=== PATIENT | female | born 1970 | race Caucasian/White ===

== ENCOUNTER 2017-11-16 00:46 | Emergency (ER) | payer OTHER ==
[~2017-11-16] VITALS: Ht 157.5 cm; Wt 77.1 kg
[2017-11-16 01:01] VITALS: BP 126/82
--- NOTE | 2017-11-16 02:53 | ED GI/GU/ABDOMINAL COMPLAINT ---
History of Present Illness General Chief Complaint: Low Back Pain/Injury Stated Complaint: "PHILLIP BEEN HAVING PAIN IN MY BACK" Source: patient Exam Limitations: no limitations Vital Signs & Intake/Output Vital Signs & Intake/Output Vital Signs Date Time Temp Pulse Resp B/P B/P Pulse O2 O2 Flow FiO2 Mean Ox Delivery Rate 11/16 0451 100 Room Air 11/16 0101 99.1 84 18 126/82 97 Room Air Allergies Coded Allergies: NSAIDS (Non-Steroidal Anti-Inflamma (Intermediate, ULCER PRONE 11/16/17) Triage Note: TRIAGE: PATIENT TO ER FROM HOME REPORTING X 1 WEEK HAVING L FLANK SHOOTING INTO L ABDOMEN, REPORTS "FEEL LIKE I HAVE TO GO, BUT NOT ALOT COMES OUT WHEN I VOID." DENIES N/V/D. DENIES HX KIDNEY STONES. TOOK GAS-X OTC W/ SLIGHT RELIEF, "JUST MADE ME BURP." Triage Nurses Notes Reviewed? yes ? N Is pt currently ? No HPI: Patient presents for evaluation of gradual onset of bilateral lower quadrant abdominal pain and left back pain that has been constant since onset. Patient states that the pain has been present for about one week and nothing she has tried including gas medicines and MiraLAX has improved the pain. She denies any associated fever, cold symptoms, dysuria, constipation, hematuria, chest pain, dyspnea, vomiting or diarrhea. She has felt nauseous from time to time and feels that she is urinating more frequently. (Juanis CALZADA,Soren Rivas) Reconcile Medications Hydrocodone/Acetaminophen (Hillman 5-325 Tablet) 5 MG-325 MG TABLET 1-2 TAB PO Q4-6 PRN PRN severe pain Hydroxychloroquine Sulfate 200 MG TABLET 1 TAB PO QPM UNKNOWN (Reported) Sertraline HCl 100 MG TABLET 1 TAB PO DAILY MENTAL HEALTH (Reported) (Rell CALZADA,Donovan) Past History Travel History Traveled to [place] past 21 day No Medical History Any Pertinent Medical History? 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 No (Juanis CALZADA,Soren Rivas) Review of Systems Review of Systems Constitutional: Reports: no symptoms. EENTM: Reports: no symptoms. Respiratory: Reports: no symptoms. Cardiovascular: Reports: no symptoms. GI: Reports: see HPI. Genitourinary: Reports: see HPI. Musculoskeletal: Reports: no symptoms. Skin: Reports: no symptoms. Neurological/Psychological: Reports: see HPI. Hematologic/Endocrine: Reports: no symptoms. Immunologic/Allergic: Reports: no symptoms. All Other Systems: Reviewed and Negative (Juanis CALZADA,Soren Rivas) Physical Exam Physical Exam Gastrointestinal: SEE BELOW Comments: Gen.: Well-nourished, well-developed, no acute respiratory distress. Uncomfortable appearing, tending to pace Head: Normocephalic, atraumatic. Eyes: Normal inspection bilaterally Ears: Normal inspection bilaterally Nose: Normal inspection Throat/mouth : Moist mucosa Neck: Supple, full range of motion, no goiter Heart: Regular rate and rhythm, no murmurs rubs or gallops Lungs: Clear to auscultation bilaterally with normal air entry Chest: Nontender Back: Normal range of motion, tenderness over the left flank Abdomen: Soft, left lower quadrant abdominal tenderness with brief voluntary guarding but no rebound, nondistended, normal bowel sounds Extremities: Normal range of motion grossly, equal radial pulses, no cyanosis clubbing or edema Neurologic: Cranial nerves grossly intact, speech is clear Skin: warm and dry Psychiatric: Calm, cooperative, no apparent delusions or hallucinations Core Measures ACS in differential dx? No Sepsis Present: No Sepsis Focused Exam Completed? No (Juanis CALZADA,Soren Rivas) Progress Differential Diagnosis: diverticulitis, renal colic, pelvic mass Plan of Care: Orders Procedure Date/time Status LIPASE 11/16 0253 Complete COMPREHENSIVE METABOLIC PANEL 11/16 0253 Complete CBC WITHOUT DIFFERENTIAL 11/16 025 Complete URINE 11/16 0106 Complete URINALYSIS 11/16 0106 Complete Laboratory Tests 11/16/17 0304: Anion Gap 13, Estimated GFR > 60, BUN/Creatinine Ratio 18.3, Glucose 129 H, Calcium 9.0, Total Bilirubin 0.5, AST 27, ALT 35, Alkaline Phosphatase 88, Total Protein 7.8, Albumin 4.3, Globulin 3.5, Albumin/Globulin Ratio 1.2, Lipase 60, CBC w Diff NO MAN DIFF REQ, RBC 4.62, MCV 81.8, MCH 27.8, RDW 13.3, MPV 9.0, Gran % 76.9 H, Lymphocytes % 15.6 L, Monocytes % 6.3, Eosinophils % 0.8, Basophils % 0.4, Absolute Granulocytes 8.8 H, Absolute Lymphocytes 1.8, Absolute Monocytes 0.7 H, Absolute Eosinophils 0.1, Absolute Basophils 0, PUBS MCHC 34.0 11/16/17 0107: Urinalysis LIGHT H, Urine Color YEL, Urine Clarity HAZY H, Urine pH 6.0, Ur Specific [place] 1.020, Urine Protein NEG, Urine Ketones NEG, Urine Nitrite NEG, Urine Bilirubin NEG, Urine Urobilinogen 0.2, Ur Leukocyte Esterase NEG, Ur Microscopic SEDIMENT EXAMINED, Urine RBC 1-3, Ur Epithelial Cells MOD H, Urine Bacteria FEW H, Urine Mucus FEW, Urine Hemoglobin SMALL H, Urine Glucose NEG, Urine Test NEGATIVE Diagnostic Imaging: Discussed w/RAD: CT Scan. Radiology Impression: PATIENT: GIGI FRANK PRESENT AGE: 47 PATIENT ACCOUNT NO: [id number] : 69 LOCATION: [facility] ORDERING PHYSICIAN: Soren Olivarez MD SERVICE DATE: 11/16/17 EXAM TYPE: CAT - CT ABD & PELVIS W IV CONTRAST EXAMINATION: CT ABDOMEN AND PELVIS WITH CONTRAST CLINICAL INFORMATION: Left lower quadrant abdominal tenderness. COMPARISON: None TECHNIQUE: Multidetector volumetric imaging was performed of the abdomen and pelvis following IV administration of 95 mL of Optiray 320 intravenous contrast. Sagittal and coronal reformatted images were obtained on the technologist's workstation. DLP: 427 mGy-cm FINDINGS: LUNG BASES: The visualized lung bases are unremarkable. LIVER, GALLBLADDER, AND BILIARY TREE: The liver is normal in size, shape, and attenuation. No focal hepatic lesion or biliary ductal dilatation is present. Cholelithiasis is noted without CT evidence of acute cholecystitis. PANCREAS: A small bowel diverticulum extends into the head of the pancreas which is otherwise unremarkable in appearance. SPLEEN: Unremarkable. ADRENAL GLANDS: Unremarkable. KIDNEYS AND URETERS: Subcentimeter cortical hypodensity is noted in the superior pole the right kidney which is too small to accurately characterize. The kidneys are normal in size, shape, and attenuation. No hydronephrosis, hydroureter, or calculi seen. No perinephric stranding. BLADDER: Unremarkable. GASTROINTESTINAL TRACT: The small bowel is normal in caliber and appearance. The sigmoid colon and rectum are displaced by a cystic abnormality within the pelvis. The colon is otherwise unremarkable in appearance. The appendix is unremarkable. ABDOMINAL WALL: No significant hernia is appreciated. LYMPH NODES: Normal. VASCULAR: Unremarkable. PELVIC VISCERA: The uterus is surgically absent. Cystic multilobulated somewhat tubular fluid density abnormality is noted in the deep pelvis and extending to the left ovary. This displaces and compresses the adjacent sigmoid colon and rectum. OSSEOUS STRUCTURES: Chronic appearing pars defects are noted at L5-S1. No acute osseous abnormalities. IMPRESSION: Cystic multilobulated abnormality with a somewhat tubular appearance in the deep pelvis and extending to the left ovary favored to represent fluid-filled dilated fallopian tube. Differential diagnosis includes hydrosalpinx, pyosalpinx, or somewhat less likely, cystic ovarian malignancy. This critical result was discussed with Dr. Olivarez at 4:53 AM on 11/16/2017 and it was ascertained that the content and urgency of the report was understood at the time of direct communication. DICTATED BY: Francisco Olsen MD DATE/TIME DICTATED:11/16/17438 CRYSTAL GROWING TECHNICIAN:ADAN DATE/TIME TRANSCRIBED:438 CONFIDENTIAL, DO NOT COPY WITHOUT APPROPRIATE AUTHORIZATION. < Electronically signed in Other Vendor System> SIGNED BY: Francisco Olsen MD 11/16/176 Initial ED EKG: none Comments: 11/16/2017 4:51:54 AM per radiologist, CAT scan reveals cystic abnormality in pelvis extending to left ovary, likely hydrosalpinx. possible malignancy. 11/16/2017 5:28:35 AM I have updated both on her test results and I am attempting to contact Dr. 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 11/16/2017 6:15:12 AM patient's case discussed with Dr. Gonzalez who recommends an ultrasound and office follow-up. 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 (Juanis CALZADA,Soren Rivas) Diagnostic Imaging: Viewed by Me: Ultrasound. Discussed w/RAD: Ultrasound. Radiology Impression: Complex cystic mass centered in the left adnexa. Vascularity involving multiple thin septations. Although the ovaries are not visualized, this appearance is nonspecific but suspicious for an ovarian neoplasm. Complex fluid within dilated tubes remains a possibility. Consider gynecologic consult. MRI may be useful for further characterization. Comments: Patient updated with US results. (Rell CALZADA,Donovan) Departure Departure Condition: Stable Departure Forms: Customer Survey General Discharge Information (Juanis CALZADA,Soren Rivas) Departure Time of Disposition: 823 Disposition: HOME OR SELF CARE Clinical Impression Primary Impression: Ovarian mass, left Referrals: Dain CALZADA,Francisco Minor (PCP/Family) Prescriptions: Current Visit Scripts Hydrocodone/Acetaminophen (Hillman 5-325 Tablet) 1-2 TAB PO Q4-6 PRN PRN severe pain #20 TAB (Rell CALZADA,Donovan)
[2017-11-16 03:17] LABS: ABSOLUTE BASOPHIL COUNT 0 /CUMM (0.0-0.2); ABSOLUTE EOSINOPHIL COUNT 0.1 /CUMM (0.0-0.7); ABSOLUTE GRANULOCYTE CT 8.8 /CUMM (1.4-6.5); ABSOLUTE LYMPH COUNT 1.8 /CUMM (1.2-3.4); ABSOLUTE MONOCYTE COUNT 0.7 /CUMM (0.10-0.60); BASOPHIL % 0.4 % (0.0-2.0); EOSINOPHIL % 0.8 % (0-5); GRANULOCYTE % 76.9 % (42.2-75.2); HEMATOCRIT 37.8 % (37-47); MEAN CORPUSCULAR HGB 27.8 PG (27.0-31.0); MEAN CORPUSCULAR VOLUME 81.8 FL (81.0-99.0); PLATELET COUNT 270 /CUMM (130-400); RBC DISTRIBUTION WIDTH 13.3 % (11.5-14.5); RED BLOOD CELL CT 4.62 /CUMM (4.20-5.40); WHITE BLOOD CELL COUNT 11.4 /CUMM (4.8-10.8)
--- NOTE | 2017-11-16 04:56 | CT SCAN REPORT ---
EXAMINATION: CT ABDOMEN AND PELVIS WITH CONTRAST CLINICAL INFORMATION: Left lower quadrant abdominal tenderness. COMPARISON: None TECHNIQUE: Multidetector volumetric imaging was performed of the abdomen and pelvis following IV administration of 95 mL of Optiray 320 intravenous contrast. Sagittal and coronal reformatted images were obtained on the technologist's workstation. DLP: 427 mGy-cm FINDINGS: LUNG BASES: The visualized lung bases are unremarkable. LIVER, GALLBLADDER, AND BILIARY TREE: The liver is normal in size, shape, and attenuation. No focal hepatic lesion or biliary ductal dilatation is present. Cholelithiasis is noted without CT evidence of acute cholecystitis. PANCREAS: A small bowel diverticulum extends into the head of the pancreas which is otherwise unremarkable in appearance. SPLEEN: Unremarkable. ADRENAL GLANDS: Unremarkable. KIDNEYS AND URETERS: Subcentimeter cortical hypodensity is noted in the superior pole the right kidney which is too small to accurately characterize. The kidneys are normal in size, shape, and attenuation. No hydronephrosis, hydroureter, or calculi seen. No perinephric stranding. BLADDER: Unremarkable. GASTROINTESTINAL TRACT: The small bowel is normal in caliber and appearance. The sigmoid colon and rectum are displaced by a cystic abnormality within the pelvis. The colon is otherwise unremarkable in appearance. The appendix is unremarkable. ABDOMINAL WALL: No significant hernia is appreciated. LYMPH NODES: Normal. VASCULAR: Unremarkable. PELVIC VISCERA: The uterus is surgically absent. Cystic multilobulated somewhat tubular fluid density abnormality is noted in the deep pelvis and extending to the left ovary. This displaces and compresses the adjacent sigmoid colon and rectum. OSSEOUS STRUCTURES: Chronic appearing pars defects are noted at L5-S1. No acute osseous abnormalities. IMPRESSION: Cystic multilobulated abnormality with a somewhat tubular appearance in the deep pelvis and extending to the left ovary favored to represent fluid-filled dilated fallopian tube. Differential diagnosis includes hydrosalpinx, pyosalpinx, or somewhat less likely, cystic ovarian malignancy. This critical result was discussed with Dr. Olivarez at 4:53 AM on 11/16/2017 and it was ascertained that the content and urgency of the report was understood at the time of direct communication.
[2017-11-16] MEDS ORDERED: HYDROXYCHLOROQ200 M2 PO (07:49)
[2017-11-16] MEDS ORDERED: SERTRALINE HCL100 MG PO (07:49)
--- NOTE | 2017-11-16 08:05 | ULTRASOUND REPORT ---
EXAMINATION: ULTRASOUND OF THE PELVIS CLINICAL INFORMATION: Cystic mass left ovary on CT scan.. COMPARISON: CT from earlier today.. TECHNIQUE: Transabdominal and transvaginal pelvic ultrasound. Doppler evaluation with spectral analysis was performed. A transvaginal study was performed in addition to the transabdominal study which did not yield an adequate examination of the uterus and ovaries due to superimposed distended gas-filled loops of bowel. FINDINGS: The patient is status post hysterectomy. The ovaries are not visualized. Within the region of the left adnexa there is a complex lesion which measures 15.8 x 8.8 x 11.7 cm. There appears to be multiple complex fluid components, with prominent internal echoes. There are thin septations which demonstrate Doppler vascularity. Both arterial and venous spectral waveforms are identified within the septations. This does not have a convincing tubular appearance. IMPRESSION: Complex cystic mass centered in the left adnexa. Vascularity involving multiple thin septations. Although the ovaries are not visualized, this appearance is nonspecific but suspicious for an ovarian neoplasm. Complex fluid within dilated tubes remains a possibility. Consider gynecologic consult. MRI may be useful for further characterization.
[2017-11-16] MEDS ORDERED: NORCO 5-325 TA1 EACH PO (08:27)
== END 2017-11-16 08:35 ==
LOC: ERH 00:46
PROVIDERS: Emergency Medicine
DX: N83.8 Other noninflammatory disorders of ovary, fallopian tube and broad ligament (principal)
CPT/HCPCS: 74177; 81001; 81025; 96361; 96374; J1885; J7040